=== PATIENT | female | born 1975 | race Caucasian/White ===

== ENCOUNTER 2017-12-26 00:35 | Emergency (ER) | payer OTHER ==
[2017-12-26] MEDS ORDERED: METHYLPREDNISOLONE 125 MG INJ ONE (01:27)
[2017-12-26] MEDS ORDERED: ALBUTEROL 2.5 MG/3 ML NEB SOL ONE (01:27)
[2017-12-26] MEDS ORDERED: IPRATROPIUM BROM 0.5MG/2.5ML ONE (01:27)
--- NOTE | 2017-12-26 01:48 | EDPHYS ---
Physician Documentation [facility] Name: Yee Pan Age: 42 yrs Sex: Female : 1975 Arrival Date: 12/26/2017 Time: 00:39 Bed 17 Private MD: ED Physician Hung Wallace HPI: 12/26 01:33 This 42 yrs old Female presents to ER via Ambulatory with complaints of jr8 Asthma Exacerbation, Breathing Difficulty. 01:33 The patient presents to the emergency department with wheezing, Current therapy: None. jr8 Onset: The symptoms/episode began/occurred acutely, 2 day(s) ago, and became worse and became persistent. Modifying factors: The symptoms are alleviated by nothing. Associated signs and symptoms: The patient has no apparent associated signs or symptoms. Severity of symptoms: At their worst the symptoms were moderate in the emergency department the symptoms are unchanged. The patient has experienced similar episodes in the past, a few times. The patient has not recently seen a physician. 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 - Social history:: Smoking status: Patient/guardian denies using tobacco, never smoked. ROS: 01:33 Eyes: Negative for injury, pain, redness, and discharge, ENT: Negative for injury, jr8 pain, and discharge, Neck: Negative for injury, pain, and swelling, Cardiovascular: Negative for chest pain, palpitations, and edema, Abdomen/GI: Negative for abdominal pain, nausea, vomiting, diarrhea, and constipation, Back: Negative for injury and pain, MS/Extremity: Negative for injury and deformity, Skin: Negative for injury, rash, and discoloration, Neuro: Negative for headache, weakness, numbness, tingling, and seizure. 01:33 Respiratory: Positive for cough, shortness of breath, wheezing. Exam: 01:33 Head/Face: Normocephalic, atraumatic. Eyes: Pupils equal round and reactive to light, jr8 extra-ocular motions intact. Lids and lashes normal. Conjunctiva and sclera are non-icteric and not injected. Cornea within normal limits. Periorbital areas with no swelling, redness, or edema. ENT: Nares patent. No nasal discharge, no septal abnormalities noted. Tympanic membranes are normal and external auditory canals are clear. Oropharynx with no redness, swelling, or masses, exudates, or evidence of obstruction, uvula midline. Mucous membranes moist. Neck: Trachea midline, no thyromegaly or masses palpated, and no cervical lymphadenopathy. Supple, full range of motion without nuchal rigidity, or vertebral point tenderness. No Meningismus. Cardiovascular: Regular rate and rhythm with a normal S1 and S2. No gallops, murmurs, or rubs. Normal PMI, no JVD. No pulse deficits. Abdomen/GI: Soft, non-tender, with normal bowel sounds. No distension or tympany. No guarding or rebound. No evidence of tenderness throughout. Back: No spinal tenderness. No costovertebral tenderness. Full range of motion. Skin: Warm, dry with normal turgor. Normal color with no rashes, no lesions, and no evidence of cellulitis. MS/ Extremity: Pulses equal, no cyanosis. Neurovascular intact. Full, normal range of motion. Neuro: Awake and alert, GCS 15, oriented to person, place, time, and situation. Cranial nerves II-XII grossly intact. Motor strength 5/5 in all extremities. Sensory grossly intact. Cerebellar exam normal. Normal gait. 01:33 Respiratory: the patient does not display signs of respiratory distress, Respirations: normal, symetrical, no use of accessory muscles, no grunting, no evidence of nasal flaring, no prolonged exhalations, no pursed lip breathing, no retractions, no shallow respirations, no splinting, no tachypnea, Breath sounds: wheezing: expiratory that is moderate, is heard diffusely. Vital Signs: 00:42 BP 114 / 83; Pulse 93; Resp 20; Temp 97.9; Pulse Ox 99% on R/A; Weight 95.25 kg; Height tl1 5 ft. 7 in. (170.18 cm); Pain 3/10; 02:00 BP 121 / 79; Pulse 99; Resp 20; Pulse Ox 100% on R/A; bp 00:42 Body Mass Index 32.89 (95.25 kg, 170.18 cm) tl1 MDM: 00:46 Patient medically screened. jr8 01:47 Data reviewed: vital signs, nurses notes, and as a result, I will discharge patient. jr8 Data interpreted: Pulse oximetry: on room air is 99 %. Interpretation: normal. Counseling: I had a detailed discussion with the patient and/or guardian regarding: the historical points, exam findings, and any diagnostic results supporting the discharge/admit diagnosis, radiology results, the need for outpatient follow up, a family practitioner, to return to the emergency department if symptoms worsen or persist or if there are any questions or concerns that arise at home. Response to treatment: the patient's symptoms have markedly improved after treatment. Administered Medications: 01:14 Drug: SOLU-Medrol 125 mg Route: IVP; Site: Other; bp 01:42 Follow up: Response: Marked relief of symptoms bp 01:14 Drug: Albuterol - atroVENT (3:1) (2.5 mg - 0.5 mg) 3 ml Route: Nebulizer; bp 01:41 Follow up: Response: No adverse reaction; Marked relief of symptoms bp Disposition: 07:18 Co-signature as Attending Physician, Hung Wallace MD I agree with the assessment and ines plan of care. Disposition: 12/26/17 01:47 Discharged to Home. Impression: Mild intermittent asthma with (acute) exacerbation. - Condition is Stable. - Discharge Instructions: Asthma, Adult. - Prescriptions for Prednisone 20 mg Oral Tablet - take 1 tablet by ORAL route once daily for 5 days; 5 tablet. Albuterol Sulfate 2.5 mg /3 mL (0.083 %) Inhalation Solution for Nebulization - inhale 1 unit by NEBULIZATION route every 8 hours As needed; 1 box. Albuterol Sulfate 90 mcg/actuation - inhale 1-2 puff by INHALATION route every 4-6 hours; 1 Inhaler. - Medication Reconciliation Form, Thank You Letter, Antibiotic Education, Prescription Opioid Use form. - Follow up: Private Physician; When: 2 - 3 days; Reason: Recheck today's complaints, Continuance of care, Re-evaluation by your physician. - Problem is new. - Symptoms have improved. Signatures: Hung Wallace MD MD cha Roszak, Josh, PA PA jr8 Carolyn Canas RN RN tl1 León Vieyra RN RN bp
--- NOTE | 2017-12-26 01:48 | ER ---
Nurse's Notes [facility] Name: Yee Pan Age: 42 yrs Sex: Female : 1975 Arrival Date: 12/26/2017 Time: 00:39 Bed 17 Private MD: Diagnosis: Mild intermittent asthma with (acute) exacerbation Presentation: 12/26 00:40 Presenting complaint: Patient states: I have had upper respiratory problem the last 2 tl1 days and it is getting worse. I feel short of breath. Transition of care: patient was not received from another setting of care. Onset of symptoms was December 26, 2017. Care prior to arrival: None. 00:40 Method Of Arrival: Ambulatory tl1 00:40 Acuity: DENIZ 3 tl1 Triage Assessment: 00:45 General: Appears in no apparent distress. comfortable, Behavior is calm, cooperative, bp appropriate for age. Respiratory: Onset: The symptoms/episode began/occurred. 00:45 Respiratory: Reports shortness of breath cough that is Onset: The symptoms/episode bp began/occurred today, the patient has mild shortness of breath. 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 - Social history:: Smoking status: Patient/guardian denies using tobacco, never smoked. Screenin:58 Abuse screen: Denies threats or abuse. Denies injuries from another. Nutritional bp screening: No deficits noted. Tuberculosis screening: No symptoms or risk factors identified. Fall Risk None identified. Assessment: 00:45 General: Appears in no apparent distress. distressed, comfortable, Behavior is calm, bp cooperative, appropriate for age. Pain: Denies pain. Neuro: Level of Consciousness is awake, alert, obeys commands, Oriented to person, place, time. Cardiovascular: No deficits noted. Respiratory: Airway is patent Respiratory effort is even, unlabored, Breath sounds with wheezes. GI: No signs and/or symptoms were reported involving the gastrointestinal system. : No signs and/or symptoms were reported regarding the genitourinary system. EENT: No signs and/or symptoms were reported regarding the EENT system. Derm: No signs and/or symptoms reported regarding the dermatologic system. Musculoskeletal: Circulation, motion, and sensation intact. Range of motion: intact in all extremities. 00:45 Cardiovascular: Rhythm is sinus rhythm. bp 01:57 Reassessment: PT D/C HOME AMBULATORY WITH FAMILY, DX WITH ASTHMA EXACERBATION. bp Vital Signs: 00:42 BP 114 / 83; Pulse 93; Resp 20; Temp 97.9; Pulse Ox 99% on R/A; Weight 95.25 kg; Height tl1 5 ft. 7 in. (170.18 cm); Pain 3/10; 02:00 BP 121 / 79; Pulse 99; Resp 20; Pulse Ox 100% on R/A; bp 00:42 Body Mass Index 32.89 (95.25 kg, 170.18 cm) tl1 ED Course: 00:39 Patient arrived in ED. es 00:41 Triage completed. tl1 00:44 Arm band placed on left wrist. tl1 00:45 No provider procedures requiring assistance completed. Initial Neb Treatment Given as bp ordered Patient was instructed and evaluated on procedure Patient tolerated procedure well without adverse effect. 00:46 Kevon Reynaga PA is PHCP. jr8 00:46 Hugn Wallace MD is Attending Physician. jr8 00:59 León Vieyra, RASHMI is Primary Nurse. bp 01:45 Patient did not have IV access during this emergency room visit. bp 01:58 Patient has correct armband on for positive identification. Bed in low position. Call bp light in reach. Side rails up X2. Adult w/ patient. Administered Medications: 01:14 Drug: SOLU-Medrol 125 mg Route: IVP; Site: Other; bp 01:42 Follow up: Response: Marked relief of symptoms bp 01:14 Drug: Albuterol - atroVENT (3:1) (2.5 mg - 0.5 mg) 3 ml Route: Nebulizer; bp 01:41 Follow up: Response: No adverse reaction; Marked relief of symptoms bp Outcome: 01:47 Discharge ordered by . jr8 01:58 Discharged to home ambulatory, with family. bp 01:58 Condition: stable 01:58 Discharge instructions given to patient, Instructed on discharge instructions, follow up and referral plans. medication usage, Demonstrated understanding of instructions, follow-up care, medications, Prescriptions given X 3. 02:01 Patient left the ED. bp Signatures: Neisha Hinson Josh, PA PA jr8 Carolyn Canas, RN RN tl1 León Vieyra RN RN bp
== END 2017-12-26 02:01 | disposition home or self-care (01) ==
LOC: ER 00:35
DX: J45.21 Mild intermittent asthma with (acute) exacerbation (principal); Z88.0 Allergy status to penicillin
CPT/HCPCS: 94640; 96374; 99284; J2930